=== PATIENT | male | born 1975 | race Caucasian/White ===

== ENCOUNTER 2017-09-16 12:32 | Emergency (ER) | payer OTHER ==
[~2017-09-16] VITALS: Ht 182.8 cm; Wt 88.9 kg
[~2017-09-16 12:32] MED LIST: AUGMENTIN 875875 MG PO; CIPRO250 MG PO; CLINDAMYCIN HC300 MG PO; DICLOFENAC POTA50 MG PO; FLEXERIL10 MG PO; HYDROCODONE BIT1 T11 PO; IBUPROFEN800 MG PO; KEFLEX500 MG PO; MOTRIN800 MG PO; NKHM; NORCO 325 MG-101 TAB PO; NORCO 325 MG-51 TAB PO; OXYCODONE AND A1 TAB PO; PENICILLIN VK500 MG PO; PERCOCET 325 MG1 TA2 PO; PERCOCET 325 MG1 TA7 PO; PREDNICOT20 MG PO; TORADOL10 MG PO; TRAMADOL HCL50 MG PO; TRIMOX500 MG PO; ULTRAM50 MG PO; VIBRAMYCIN100 MG PO; VICODIN 5/500 505 MG PO; VICODIN 500 MG-1 TAB PO; VICODIN ES 7501 TAB PO; VOLTAREN75 MG PO; ZOVIRAX800 MG PO
[2017-09-16] MEDS ORDERED: Motrin,Rufen800 MG PO (13:43)
== END 2017-09-16 14:10 | disposition home or self-care (01) ==
LOC: ED 12:32
DX: M70.31 Other bursitis of elbow, right elbow (principal); F17.200 Nicotine dependence, unspecified, uncomplicated; F10.10 Alcohol abuse, uncomplicated; Y93.89 Activity, other specified; Z88.6 Allergy status to analgesic agent

== ENCOUNTER 2017-10-10 15:22 | Emergency (ER) | payer OTHER ==
[~2017-10-10 15:22] MED LIST changes: +Motrin,Rufen800 MG PO
[2017-10-10 16:44] LABS: BODY FLUID WBC 1230 /uL
[2017-10-10 17:24] LABS: BF LYMPHOCYTES 15 %; BF MACROPHAGES 82 %; BF NEUTROPHILS 3 %
== END 2017-10-10 16:15 | disposition home or self-care (01) ==
LOC: ED 15:22
PROVIDERS: Emergency Medicine
DX: M70.21 Olecranon bursitis, right elbow (principal); F17.210 Nicotine dependence, cigarettes, uncomplicated; Z90.89 Acquired absence of other organs; Z98.890 Other specified postprocedural states; Z88.5 Allergy status to narcotic agent

== ENCOUNTER → 2017-11-29 | Outpatient (CLI) | payer OTHER ==
[2017-11-29 12:24] LABS: HEMATOCRIT 42.5 % (42.0-52.0); HEMOGLOBIN 13.8 g/dl (14.0-18.0); MEAN CELL VOLUME 89.7 fl (80.0-94.0); MEAN CORPUSCULAR HGB 29.1 pg (27.0-31.0); MEAN CORPUSCULAR HGB CONC 32.5 g/dl (33.0-37.0); MEAN PLATELET VOLUME 11.4 fl (9.6-12.3); RED BLOOD COUNT 4.74 10*6/uL (4.50-5.90); RED CELL DISTRI WIDTH 13.7 % (0-14.5); WHITE BLOOD COUNT 7.4 10*3/uL (4.8-10.8)
[2017-11-29 12:36] LABS: ALBUMIN 3.7 gm/dl (3.1-4.5); ALKALINE PHOSPHATASE 110 U/L (45-117); BUN 7 mg/dl (7-24); CHLORIDE 107 mmol/L (98-107); CHOLESTEROL 163 mg/dL (<200); CREATININE 0.83 mg/dL (0.70-1.30); HDL CHOLESTEROL 45 mg/dl (40-60); LDL CHOLESTEROL 101 mg/dL (9-159); POTASSIUM 4.2 mmol/L (3.5-5.1); SGOT/AST 19 IU/L (3-35); SGPT/ALT 17 U/L (12-78); SODIUM 140 mmol/L (136-145); TOTAL PROTEIN 7.6 gm/dL (6.4-8.2); TRIGLYCERIDES 85 mg/dl (<150); VLDL CHOLESTEROL 17 mg/dL (6-40)
[2017-11-29 12:42] LABS: THYROID STIM HORMONE (HS) 0.726 uIU/ml (0.358-4.75)
== END | disposition home or self-care (01) ==
LOC: LAB 11:49 → US 12:30
PROVIDERS: Registered Nurse Flight
DX: Z13.29 Encounter for screening for other suspected endocrine disorder (principal); Z13.220 Encounter for screening for lipoid disorders; J44.9 Chronic obstructive pulmonary disease, unspecified; N50.89 Other specified disorders of the male genital organs; N43.3 Hydrocele, unspecified; R79.89 Other specified abnormal findings of blood chemistry; Z83.3 Family history of diabetes mellitus

== ENCOUNTER 2017-12-03 21:17 | Emergency (ER) | payer OTHER ==
[~2017-12-03] VITALS: Ht 182.8 cm; Wt 86.2 kg
== END 2017-12-03 22:18 | disposition home or self-care (01) ==
LOC: ED 21:17
DX: S40.812A Abrasion of left upper arm, initial encounter (principal); F17.200 Nicotine dependence, unspecified, uncomplicated; Z90.89 Acquired absence of other organs; Z98.890 Other specified postprocedural states; Z88.5 Allergy status to narcotic agent; W01.0XXA Fall on same level from slipping, tripping and stumbling without subsequent striking against object, initial encounter; Y93.89 Activity, other specified; Y92.89 Other specified places as the place of occurrence of the external cause; Y99.9 Unspecified external cause status

== ENCOUNTER → 2018-01-24 | Outpatient (CLI) | payer OTHER | END | disposition home or self-care (01) | LOC: RAD 14:20 | DX: M25.552 Pain in left hip (principal); M25.551 Pain in right hip ==

== ENCOUNTER 2019-10-02 03:00 | Emergency (ER) | payer OTHER ==
[~2019-10-02] VITALS: Wt 99.8 kg
[2019-10-02] MEDS ORDERED: BUPREN/NALOX SUB 8-2 PO (03:06)
== END 2019-10-02 04:29 | disposition home or self-care (01) ==
LOC: ED 03:00
DX: H93.8X2 Other specified disorders of left ear (principal); J44.9 Chronic obstructive pulmonary disease, unspecified; F17.200 Nicotine dependence, unspecified, uncomplicated; Z88.5 Allergy status to narcotic agent; Z79.899 Other long term (current) drug therapy

== ENCOUNTER 2021-07-05 11:41 | Emergency (ER) | payer OTHER ==
[~2021-07-05] VITALS: Wt 99.8 kg
[~2021-07-05 11:41] MED LIST changes: +BUPREN/NALOX SUB 8-2 PO
[2021-07-05] MEDS ORDERED: AUGMENTIN 875875 MG PO (13:32)
[2021-07-05] MEDS ORDERED: VICO10300 PO (13:33)
== END 2021-07-05 13:52 | disposition home or self-care (01) ==
LOC: ED 11:41
DX: S51.831A Puncture wound without foreign body of right forearm, initial encounter (principal); S61.531A Puncture wound without foreign body of right wrist, initial encounter; Z88.6 Allergy status to analgesic agent; Z79.899 Other long term (current) drug therapy; W54.0XXA Bitten by dog, initial encounter; Y93.89 Activity, other specified; Y92.89 Other specified places as the place of occurrence of the external cause; Y99.8 Other external cause status

== ENCOUNTER 2021-07-08 14:47 | Emergency (ER) | payer OTHER ==
[~2021-07-08 14:47] MED LIST changes: +VICO10300 PO
== END 2021-07-08 16:00 | disposition left against medical advice (07) ==
LOC: ED 14:47
DX: Z23 Encounter for immunization (principal); Z53.21 Procedure and treatment not carried out due to patient leaving prior to being seen by health care provider